=== PATIENT | male | born 1955 | race Caucasian/White ===

== ENCOUNTER 2017-04-26 02:25 | Inpatient (IN) | payer MEDICARE, OTHER ==
--- NOTE | 2017-04-26 03:02 | EDM.PDOC ---
ED HPI GENERAL MEDICAL PROBLEM - General Chief Complaint: Respiratory Problem Stated Complaint: Dyspnea Time Seen by Provider: 04/26/17 02:27 Source of Information: Reports: Patient, Family, RN, RN Notes Reviewed History Limitations: Reports: No Limitations - History of Present Illness INITIAL COMMENTS - FREE TEXT/NARRATIVE: Patient is brought to the ED at [facility] via [facility] for worsening dyspnea, wheezing, and SOB. Patient states he was discharged from the [facility] in [place] yesterday morning after a 2 day stay for Pneumonia. Patient states yesterday afternoon and into the evening, he started having significant SOB with dyspnea and also developed a productive cough. Patient called the ambulance due to worsening symptoms. According to the EMS crew, they contacted the provider on-call at [facility] who told them to take the patient directly to the [facility] in [place]. The EMS crew then contacted the [facility], who directed them to the nearest ER, stating they did not have any beds available for admissions. Patient states he was treated with antibiotics during his admission at the [facility] in [place], but was not sent home on any antibiotics. Patient states he was only prescribed PO steroid when discharge from the [facility]. Onset: Today - Related Data Allergies Allergy/AdvReac Type Severity Reaction Status Date / Time niacin Allergy Hives Verified 04/26/17 02:53 Home Meds: Home Meds . [Unable to Verify Home Med List] 04/26/17 [History] ED ROS GENERAL - Review of Systems Review Of Systems: See Below HEENT: Reports: No Symptoms Respiratory: Reports: Shortness of Breath, Wheezing, Pleuritic Chest Pain, Cough , Sputum Cardiovascular: Reports: Dyspnea on Exertion. Denies: Chest Pain, Palpitations GI/Abdominal: Denies: Abdominal Pain, Nausea, Vomiting Skin: Reports: No Symptoms Neurological: Reports: Dizziness. Denies: Headache, Numbness, Paresthesia, Tingling Psychiatric: Reports: Anxiety ED EXAM, GENERAL - Physical Exam Exam: See Below Exam Limited By: No Limitations General Appearance: Alert, Anxious, Moderate Distress Respiratory/Chest: Decreased Breath Sounds, Crackles, Rhonchi, Wheezing Cardiovascular: Normal Peripheral Pulses, No Murmur, Tachycardia Peripheral Pulses: 2+: Radial (L), Radial (R) GI/Abdominal: Soft, Non-Tender, Abnormal Bowel Sounds (Hypoactive) Neurological: Alert, Oriented Skin Exam: Warm, Dry, Intact, Normal Color, No Rash EKG INTERPRETATION EKG Date: 04/26/17 Time: 03:07 Rhythm: a-fib Rate (beats/min): 97 [place]: normal P-wave: absent QRS: LBBB ST-T: normal QT: normal CT/PQ Interval: Absent Comparison: NA - no prior EKG EKG Interpretation Comments: Atrial Fibrillation Left Anterior Fascicular block Course - Vital Signs Last Recorded V/S: Last Vital Signs Temp 37.4 C 04/26/17 02:50 Pulse 120 H 04/26/17 02:50 Resp 32 H 04/26/17 02:50 BP 160/101 H 04/26/17 02:50 Pulse Ox 96 04/26/17 02:50 - Orders/Labs/Meds Orders: Active Orders 24 hr Category Date Time Status Admission Status [Patient Status] [ADT] Routine ADT 04/26/17 04:17 Ordered EKG 12 Lead [EKG Documentation Completion] [RC] STAT Care 04/26/17 03:05 Active Chest 2V [CR] Stat Exams 04/26/17 03:05 Taken CULTURE BLOOD [BC] Stat Lab 04/26/17 04:05 Results CULTURE BLOOD [BC] Stat Lab 04/26/17 04:10 Received Sodium Chloride 0.9% [Saline Flush] Med 04/26/17 03:06 Active 10 ml FLUSH ASDIRECTED PRN Blood Culture x2 Reflex Set [OM.PC] Stat Oth 04/26/17 03:59 Ordered Peripheral IV Insertion Adult [OM.PC] Routine Oth 04/26/17 03:06 Ordered Medication Orders Sodium Chloride (Saline Flush) 10 ml FLUSH ASDIRECTED PRN PRN Reason: Keep Vein Open Labs: Laboratory Tests 04/26/17 04/26/17 04/26/17 Range/Units 03:15 03:15 03:15 WBC 14.0 H (4.0-10.0) x10^3/uL RBC 4.78 (4.5-6.0) x10^6/uL Hgb 12.1 L (14.0-18.0) g/dL Hct 38.5 L (40.0-52.0) % MCV 80.5 (78.0-93.0) fL MCH 25.3 L (26.0-32.0) pg MCHC 31.4 L (32.0-36.0) g/dL RDW Coeff of [place] 18.3 H (10.0-15.0) % Plt Count 292 (130-400) x10^3/uL Neut % (Auto) 84.7 H (50.0-80.0) % Lymph % (Auto) 4.5 L (25.0-50.0) % [place] % (Auto) 10.5 (2.0-11.0) % Eos % (Auto) 0.1 (0.0-4.0) % Baso % (Auto) 0.2 (0.2-1.2) % POC ABG pH (7.35-7.45) ABG pH POC ABG pCO2 (35-45) mmHG ABG pCO2 POC ABG pO2 (80-105) mmHG ABG pO2 POC ABG HCO3 (22-26) mmol/L ABG HCO3 POC ABG Total CO2 (23-27) mmol/L ABG Total CO2 POC ABG O2 Sat (95-98) % ABG O2 Content POC ABG Base Excess (-2-3) mmol/L ABG Base Excess A-a Gradient Oxygen Flow Rate FiO2 POC FiO2 Blood Gas Comments Sodium 144 (136-145) mmol/L Potassium 3.7 (3.5-5.1) mmol/L Chloride 106 (98-107) mmol/L Carbon Dioxide 32 (21-32) mmol/L BUN 21 H (7-18) mg/dL Creatinine 1.2 (0.70-1.30) mg/dL Est Cr Clr Drug Dosing TNP Estimated GFR (MDRD) > 60 Glucose 138 H (74-106) mg/dL Lactic Acid 1.1 (0.4-2.0) mmol/L Calcium 8.6 (8.5-10.1) mg/dL Corrected Calcium 9.16 (8.5-10.1) mg/dL Total Bilirubin 0.5 (0.2-1.0) mg/dL AST 88 H (15-37) U/L ALT 198 H (16-63) U/L Alkaline Phosphatase 91 (46-116) U/L Creatine Kinase 193 (39-308) U/L Creatine Kinase Index 1.2 (0.0-4.0) % CK-MB (CK-2) 2.4 (0.0-3.6) ng/mL Troponin I 0.086 H* (<=0.056) ng/mL C-Reactive Protein 5.5 H (<=0.9) mg/dL B-Natriuretic Peptide 3554 H (<=125) pg/mL Total Protein 7.2 (6.4-8.2) g/dL Albumin 3.3 L (3.4-5.0) g/dL Globulin 3.9 Albumin/Globulin Ratio 0.85 04/26/17 04/26/17 Range/Units 03:20 03:28 WBC (4.0-10.0) x10^3/uL RBC (4.5-6.0) x10^6/uL Hgb (14.0-18.0) g/dL Hct (40.0-52.0) % MCV (78.0-93.0) fL MCH (26.0-32.0) pg MCHC (32.0-36.0) g/dL RDW Coeff of [place] (10.0-15.0) % Plt Count (130-400) x10^3/uL Neut % (Auto) (50.0-80.0) % Lymph % (Auto) (25.0-50.0) % [place] % (Auto) (2.0-11.0) % Eos % (Auto) (0.0-4.0) % Baso % (Auto) (0.2-1.2) % POC ABG pH 7.480 H (7.35-7.45) ABG pH Cancelled POC ABG pCO2 36 (35-45) mmHG ABG pCO2 Cancelled POC ABG pO2 64 L (80-105) mmHG ABG pO2 Cancelled POC ABG HCO3 27 H (22-26) mmol/L ABG HCO3 Cancelled POC ABG Total CO2 28 H (23-27) mmol/L ABG Total CO2 Cancelled POC ABG O2 Sat 94 L (95-98) % ABG O2 Content Cancelled POC ABG Base Excess 3 (-2-3) mmol/L ABG Base Excess Cancelled A-a Gradient Cancelled Oxygen Flow Rate Cancelled FiO2 Cancelled POC FiO2 0.28 Blood Gas Comments Cancelled Sodium (136-145) mmol/L Potassium (3.5-5.1) mmol/L Chloride (98-107) mmol/L Carbon Dioxide (21-32) mmol/L BUN (7-18) mg/dL Creatinine (0.70-1.30) mg/dL Est Cr Clr Drug Dosing Estimated GFR (MDRD) Glucose (74-106) mg/dL Lactic Acid (0.4-2.0) mmol/L Calcium (8.5-10.1) mg/dL Corrected Calcium (8.5-10.1) mg/dL Total Bilirubin (0.2-1.0) mg/dL AST (15-37) U/L ALT (16-63) U/L Alkaline Phosphatase (46-116) U/L Creatine Kinase (39-308) U/L Creatine Kinase Index (0.0-4.0) % CK-MB (CK-2) (0.0-3.6) ng/mL Troponin I (<=0.056) ng/mL C-Reactive Protein (<=0.9) mg/dL B-Natriuretic Peptide (<=125) pg/mL Total Protein (6.4-8.2) g/dL Albumin (3.4-5.0) g/dL Globulin Albumin/Globulin Ratio Meds: Medications Generic Name Dose Route Start Last Admin Trade Name Freq PRN Reason Stop Dose Admin Sodium Chloride 10 ml 04/26/17 03:06 Saline Flush FLUSH ASDIRECTED PRN Keep Vein Open Discontinued Medications Generic Name Dose Route Start Last Admin Trade Name Freq PRN Reason Stop Dose Admin Sodium Chloride 1,000 mls @ 999 mls/hr 04/26/17 03:06 Normal Saline IV 04/26/17 04:06 ONETIME ONE Departure - Departure Time of Disposition: 04:18 Disposition: Admitted As Inpatient 66 Condition: fair Clinical Impression: Pulmonary edema with congestive heart failure, COPD with acute exacerbation, Hypoxia - Discharge Information ED Communication - ED Communication Date/Time Date: 04/26/17 Time Called: 04:18 - Discussed Case With (1) Discussed Case With (1): Patient - Conversation Summary Patient Aware of Amendments fo Care Plan: Yes - Problem List & Annotations (1) Pulmonary edema with congestive heart failure SNOMED Code(s): 10245456 Code(s): I50.1 - LEFT VENTRICULAR FAILURE Status: Acute Priority: High Current Visit: Yes Onset Date: ~04/25/17 (2) COPD with acute exacerbation SNOMED Code(s): 769262238 Code(s): J44.1 - CHRONIC OBSTRUCTIVE PULMONARY DISEASE W (ACUTE) EXACERBATION Status: Acute Priority: High Current Visit: Yes (3) Hypoxia SNOMED Code(s): 005953742, 305791072 Code(s): R09.02 - HYPOXEMIA Status: Acute Priority: High Current Visit : Yes Onset Date: ~04/26/17 - Problem List Review Problem List Initiated/Reviewed/Updated: Yes - My Orders Last 24 Hours: My Active Orders 04/26/17 03:05 EKG 12 Lead [EKG Documentation Completion] [RC] STAT Chest 2V [CR] Stat 04/26/17 03:06 Sodium Chloride 0.9% [Saline Flush] 10 ml FLUSH ASDIRECTED PRN Peripheral IV Insertion Adult [OM.PC] Routine 04/26/17 03:59 Blood Culture x2 Reflex Set [OM.PC] Stat 04/26/17 04:05 CULTURE BLOOD [BC] Stat 04/26/17 04:10 CULTURE BLOOD [BC] Stat 04/26/17 04:17 Admission Status [Patient Status] [ADT] Routine - Assessment/Plan Admission H&P: Please use this note as an admission H&P Last 24 Hours: My Active Orders 04/26/17 03:05 EKG 12 Lead [EKG Documentation Completion] [RC] STAT Chest 2V [CR] Stat 04/26/17 03:06 Sodium Chloride 0.9% [Saline Flush] 10 ml FLUSH ASDIRECTED PRN Peripheral IV Insertion Adult [OM.PC] Routine 04/26/17 03:59 Blood Culture x2 Reflex Set [OM.PC] Stat 04/26/17 04:05 CULTURE BLOOD [BC] Stat 04/26/17 04:10 CULTURE BLOOD [BC] Stat 04/26/17 04:17 Admission Status [Patient Status] [ADT] Routine
[2017-04-26] MEDS ORDERED: Sodium Chloride 0.9% 10 ML Syringe FLUSH PRN (03:06)
[2017-04-26] MEDS ORDERED: Sodium Chloride 0.9% 1,000 ML IV ONE (03:06)
[2017-04-26 04:09] LABS: CHLORIDE,CL 106 mmol/L (98-107); SODIUM,NA 144 mmol/L (136-145)
--- NOTE | 2017-04-26 05:08 | PCM.HP ---
H&P History of Present Illness - General Date of Service: 04/26/17 Admit Problem/Dx: Pulmonary Edema Acute COPD exacerbation Hypoxia Source of Information: Patient, EMS Notes Reviewed, Family, Old Records ([facility] Records), RN, RN Notes Reviewed History Limitations: Reports: No Limitations - History of Present Illness Initial Comments - Free Text/Narative: Patient is brought to the ED at [facility] via [facility] for worsening dyspnea, wheezing, and SOB. Patient states he was discharged from the [facility] in [place] yesterday morning after a 2 day stay for Pneumonia. Patient states yesterday afternoon and into the evening, he started having significant SOB with dyspnea and also developed a productive cough. Patient called the ambulance due to worsening symptoms. According to the EMS crew, they contacted the provider on-call at [facility] who told them to take the patient directly to the [facility] in [place]. The EMS crew then contacted the [facility], who directed them to the nearest ER, stating they did not have any beds available for admissions. Patient states he was treated with antibiotics during his admission at the [facility] in [place], but was not sent home on any antibiotics. Patient states he was only prescribed PO steroid when discharge from the [facility]. According to records from the [facility], the patient underwent right inguinal hernia repair on . Sometime after surgery, the patient developed SOB; therefore , was admitted with a dx of COPD exacerbation. He was given one dose of Zosyn for a temp of 102, no source of infection found. He was given nebs and steroids , which seem to help quite a bit. He did have elevated troponins, which is felt to be related to his CHF. Patient was able to be discharge on on PO steroids. Onset of Symptoms: Reports: Gradual Symptom Onset Date: 04/25/17 Duration of Symptoms: Reports: Getting Worse - Related Data Allergies/Adverse Reactions: Allergies Allergy/AdvReac Type Severity Reaction Status Date / Time niacin Allergy Hives Verified 04/26/17 02:53 Home Medications: Home Meds . [Unable to Verify Home Med List] 04/26/17 [History] Past Medical History Cardiovascular History: Reports: Afib, CAD, Heart Failure, High Cholesterol, Hypertension, NH, PVD, Stents Respiratory History: Reports: COPD - Past Surgical History Cardiovascular Surgical History: Reports: Carotid Stents Social & Family History - Family History Family Medical History: Noncontributory - Tobacco Use Smoking Status *Q: Former Smoker Years of Tobacco use: 13 Packs/Tins Daily: 2 Used Tobacco, but Quit: No Second Hand Smoke Exposure: Yes - Caffeine Use Caffeine Use: Reports: Coffee, Soda - Recreational Drug Use Recreational Drug Use: Yes Drug Use in Last 12 Months: No Recreational Drug Type: Reports: Marijuana/Hashish Recreational Drug Use Frequency: Binges - Living Situation & Occupation Living situation: Reports: Occupation: Disabled H&P Review of Systems - Review of Systems: Review Of Systems: See Below General: Denies: Fever, Chills, Weakness Pulmonary: Reports: Shortness of Breath, Wheezing, Pleuritic Chest Pain, Cough, Sputum Cardiovascular: Reports: Dyspnea on Exertion, Orthopnea. Denies: Chest Pain, Palpitations Gastrointestinal: Denies: Abdominal Pain, Nausea, Vomiting Skin: Reports: No Symptoms Neurological: Denies: Headache, Numbness, Paresthesia, Tingling Exam - Exam Exam: See Below - Vital Signs Vital Signs: Last Vital Signs Temp 37.4 C 04/26/17 02:50 Pulse 120 H 04/26/17 02:50 Resp 32 H 04/26/17 02:50 BP 160/101 H 04/26/17 02:50 Pulse Ox 94 L 04/26/17 04:30 Weight: 95.39 kg - Exam Quality Assessment: Supplemental Oxygen General: Alert, Oriented Neck: Supple Lungs: Normal Respiratory Effort, Decreased Breath Sounds, Crackles, Wheezing Cardiovascular: Normal S1, Normal S2, Irregular Rhythm Abdomen: Soft, Hypoactive Bowel Sounds Peripheral Pulses: 2+: Radial (L), Radial (R) Skin: Warm, Dry, Intact Neuro Extensive - Mental Status: Alert, Oriented x3 - Patient Data Result Diagrams: 04/26/17 03:15 04/26/17 03:15 *Q Meaningful Use (ADM) - VTE *Q VTE Criteria *Q: - VTE Risk Assess *Q Each Risk Factor Represents 2 Points: Age 60 - 74 Years (Patient is currently on Warfarin and Lovenox for AFib), Surgery: Major, Arthroscopic and/or Laparoscopic, Greater than 60 Min Total Score 2 Point Risk Factors: 4 - Stroke *Q Stroke Criteria *Q: - AMI *Q AMI Criteria *Q: - Problem List (1) Pulmonary edema with congestive heart failure SNOMED Code(s): 37962852 ICD Code: I50.1 - LEFT VENTRICULAR FAILURE Status: Acute Priority: High Current Visit: Yes Onset Date: ~04/25/17 (2) COPD with acute exacerbation SNOMED Code(s): 951316605 ICD Code: J44.1 - CHRONIC OBSTRUCTIVE PULMONARY DISEASE W (ACUTE) EXACERBATION Status: Acute Priority: High Current Visit: Yes (3) Hypoxia SNOMED Code(s): 267640043, 763911655 ICD Code: R09.02 - HYPOXEMIA Status: Acute Priority: High Current Visit : Yes Onset Date: ~04/26/17 (4) Type II diabetes mellitus SNOMED Code(s): 65918456 ICD Code: E11.9 - TYPE 2 DIABETES MELLITUS WITHOUT COMPLICATIONS Status: Acute Priority: Medium Current Visit: Yes Qualifiers: Diabetes mellitus complication status: with circulatory complication Diabetes mellitus complication detail: with other circulatory complications Diabetes mellitus antique clock repairer insulin use: without antique clock repairer use Qualified Code( s): E11.59 - Type 2 diabetes mellitus with other circulatory complications (5) Coronary artery disease SNOMED Code(s): 56904497 ICD Code: I25.10 - ATHSCL HEART DISEASE OF [place] CORONARY ARTERY W/O ANG PCTRS Status: Acute Priority: Medium Current Visit: Yes Qualifiers: Coronary Disease-Associated Artery/Lesion type: [place] artery [place] vs. transplanted heart: robinson heart Associated angina: without angina Qualified Code(s): I25.10 - Atherosclerotic heart disease of [place] coronary artery without angina pectoris (6) Hypertension SNOMED Code(s): 80457891 ICD Code: I10 - ESSENTIAL (PRIMARY) HYPERTENSION Status: Acute Current Visit: Yes Qualifiers: Hypertension type: essential hypertension Qualified Code(s): I10 - Essential (primary) hypertension (7) Chronic atrial fibrillation SNOMED Code(s): 633004904 ICD Code: I48.2 - CHRONIC ATRIAL FIBRILLATION Status: Acute Priority: Medium Current Visit: Yes (8) Peripheral vascular disease SNOMED Code(s): 029778946 ICD Code: I73.9 - PERIPHERAL VASCULAR DISEASE, UNSPECIFIED Status: Acute Priority: Medium Current Visit: Yes Problem List Initiated/Reviewed/Updated: Yes Orders Last 24hrs: Medication Orders Sodium Chloride (Saline Flush) 10 ml FLUSH ASDIRECTED PRN PRN Reason: Keep Vein Open Assessment/Plan Comment:: 61 yo male patient with a PMH of DM Type II, COPD, CAD, and Hypertension is admitted to acute for Pulmonary Edema in the setting of CHF, Acute COPD exacerbation, and hypoxia. We will hold PO lasix and change to IV. Start home medications for COPD along with DuoNebs. Solumedrol IV daily. Accu checks QID. Telemetry. Empirically start Zithromax for COPD exacerbation per GOLD guidelines. Will talk with pharmacy for Lovenox dosing and bridge with Warfarin. HOME VISITOR consult for COPD/smoking cessation. Continue all other home medications without changes for now. Patient wishes to be a Code I. Patient agrees with transfer to a higher level of care shoulder the need arise. DVT prophylaxis, already on Lovenox and Warfarin. I do anticipate this admission to be >48 hours.
[2017-04-26] MEDS ORDERED: Furosemide 20 MG/2 ML VIAL IVPUSH ONE (05:27)
[2017-04-26] MEDS ORDERED: Acetaminophen 325 MG Tab PO PRN (05:46)
[2017-04-26] MEDS ORDERED: Morphine 2 MG/ML Syringe IVPUSH PRN (05:46)
[2017-04-26] MEDS ORDERED: Ondansetron 4 MG Tab.DIS PO PRN (05:46)
[2017-04-26] MEDS ORDERED: LORazepam 2 MG/ML MDV IVPUSH PRN (05:53)
[2017-04-26] MEDS: Azithromycin 500 MG in Sodium Chloride 0.9% 250 ML IV SCH (06:10)
[2017-04-26] MEDS: methylPREDNISolone Sodium Succinate 125 MG/2 ML SDV IVPUSH SCH ×2 (06:11→09:16)
[2017-04-26] MEDS: Albuterol/Ipratropium 3.0-0.5 MG/3 ML Neb Soln NEB PRN ×4 (07:17→20:13)
[2017-04-26] MEDS ORDERED: Nitroglycerin 0.4 MG Tab.SL SL PRN (08:27)
[2017-04-26] MEDS ORDERED: Warfarin 5 MG Tab PO SCH ×2 (08:30→20:00)
[2017-04-26] MEDS ORDERED: Iopamidol 612 MG/ML 100 ML Bottle IVPUSH ONE (09:39)
[2017-04-26] MEDS ORDERED: Sodium Chloride 0.9% 100 ML IV ONE (09:39)
[2017-04-26] MEDS: Nicotine 21 MG/24 Hr Patch TRDERM SCH ×2 (09:41→09:51)
[2017-04-26] MEDS: buPROPion 150 MG Tab.ER PO SCH ×2 (09:42→20:14)
[2017-04-26] MEDS: Isosorbide Mononitrate 60 MG Tab.ER PO SCH (09:42)
[2017-04-26] MEDS: Enoxaparin 120 MG/0.8 ML Syringe SUBCUT SCH (09:42)
[2017-04-26] MEDS: Lisinopril 20 MG Tab PO SCH (09:42)
[2017-04-26] MEDS: Metoprolol Succinate 50 MG Tab.ER PO SCH (09:43)
[2017-04-26] MEDS: Omeprazole 20 MG Cap.CR PO SCH ×2 (09:43→17:24)
[2017-04-26] MEDS ORDERED: Digoxin 500 MCG/2 ML Amp IVPUSH ONE (11:49)
[2017-04-26] MEDS ORDERED: Digoxin 125 MCG Tab PO SCH ×2 (14:30→18:00)
--- NOTE | 2017-04-26 15:27 | PCM.PN ---
- General Info Date of Service: 04/26/17 Admission Dx/Problem (Free Text): Pulmonary Edema Acute COPD exacerbation Hypoxia Bilateral upper lobe infiltrates DM Type II CAD CHF Essential Hypertension Functional Status: Reports: pain controlled, tolerating diet, urinating Pain Score: 0 - Review of Systems General: Reports: No Symptoms. Denies: Fever, Weakness Pulmonary: Reports: shortness of breath, cough, wheezing Cardiovascular: Reports: Dyspnea on Exertion, Orthopnea. Denies: Chest Pain Gastrointestinal: Denies: Abdominal pain, Nausea, Vomiting Musculoskeletal: Reports: no symptoms Neurological: Reports: No Symptoms. Denies: Dizziness, Headache, Numbness, Paresthesia, Tingling - Patient Data Vitals - most recent: Last Vital Signs Temp 36.8 C 04/26/17 14:00 Pulse 88 04/26/17 14:00 Resp 26 H 04/26/17 14:00 BP 106/80 04/26/17 14:00 Pulse Ox 97 04/26/17 14:00 Weight - most recent: 95.254 kg I&O - last 24 hours: Intake & Output 04/26/17 04/26/17 04/26/17 06:59 14:59 22:59 Intake Total 400 240 Balance 400 240 Lab Results last 24 hrs: Laboratory Results - last 24 hr 04/26/17 04/26/17 04/26/17 Range/Units 07:03 07:03 07:03 PT 18.4 H (10.0-12.8) SEC INR 1.6 L (2.0-3.5) D-Dimer, Quantitative 0.98 H (<=0.58) mg/LFEU POC Glucose (74-106) mg/dL Troponin I 0.082 H* (<=0.056) ng/mL Urine Color (YELLOW) Urine Appearance (CLEAR) Urine pH (5.0-8.0) Ur Specific [place] Urine Protein (NEGATIVE) mg/dL Urine Glucose (UA) (NEGATIVE) mg/dL Urine Ketones (NEGATIVE) mg/dL Urine Occult Blood (NEGATIVE) Urine Nitrite (NEGATIVE) Urine Bilirubin (NEGATIVE) Urine Urobilinogen (0.2) EU/dL Ur Leukocyte Esterase (NEGATIVE) Urine RBC (NOT SEEN) /HPF Urine WBC (NOT SEEN) /HPF Ur Squamous Epith Cells (NEGATIVE) /HPF Urine Bacteria (NEGATIVE) /HPF Urine Mucus (NEGATIVE) /LPF 04/26/17 04/26/17 04/26/17 Range/Units 07:26 07:44 11:18 PT (10.0-12.8) SEC INR (2.0-3.5) D-Dimer, Quantitative (<=0.58) mg/LFEU POC Glucose 155 H 147 H (74-106) mg/dL Troponin I (<=0.056) ng/mL Urine Color Light yellow (YELLOW) Urine Appearance Clear (CLEAR) Urine pH 6.0 (5.0-8.0) Ur Specific [place] 1.010 Urine Protein Negative (NEGATIVE) mg/dL Urine Glucose (UA) Negative (NEGATIVE) mg/dL Urine Ketones Negative (NEGATIVE) mg/dL Urine Occult Blood Trace-intact H (NEGATIVE) Urine Nitrite Negative (NEGATIVE) Urine Bilirubin Negative (NEGATIVE) Urine Urobilinogen 0.2 (0.2) EU/dL Ur Leukocyte Esterase Negative (NEGATIVE) Urine RBC 0-5 (NOT SEEN) /HPF Urine WBC Not seen (NOT SEEN) /HPF Ur Squamous Epith Cells Rare (NEGATIVE) /HPF Urine Bacteria Not seen (NEGATIVE) /HPF Urine Mucus Not seen (NEGATIVE) /LPF Med Orders - Current: Current Medications Acetaminophen (Tylenol) 650 mg PO Q4H PRN PRN Reason: Pain (Mild 1-3)/fever Albuterol/Ipratropium (Duoneb 3.0-0.5 Mg/3 Ml) 3 ml NEB Q4HRRT PRN PRN Reason: Wheezing Last Admin: 04/26/17 14:53 Dose: 3 ml Atorvastatin Calcium (Lipitor) 80 mg PO BEDTIME [facility] Bupropion HCl (Wellbutrin Xl) 150 mg PO BID [facility] Last Admin: 04/26/17 09:42 Dose: 150 mg Digoxin (Lanoxin) 125 mcg PO DAILY@1800 [facility] Enoxaparin Sodium (Lovenox) 120 mg SUBCUT DAILY [facility] Last Admin: 04/26/17 09:42 Dose: 120 mg Furosemide (Lasix) 20 mg PO DAILY [facility] Azithromycin 500 mg/ Sodium (Chloride) 250 mls @ 250 mls/hr IV DAILY [facility] Last Admin: 04/26/17 06:10 Dose: 250 mls/hr Isosorbide Mononitrate (Imdur) 120 mg PO DAILY [facility] Last Admin: 04/26/17 09:42 Dose: 120 mg Lisinopril (Prinivil) 40 mg PO DAILY [facility] Last Admin: 04/26/17 09:42 Dose: 40 mg Lorazepam (Ativan) 0.5 mg IVPUSH Q4H PRN PRN Reason: Anxiety Last Admin: 04/26/17 06:27 Dose: 0.5 mg Methylprednisolone Sodium Succinate (Solu-Medrol) 125 mg IVPUSH DAILY [facility] Last Admin: 04/26/17 09:16 Dose: Not Given Metoprolol Succinate (Toprol Xl) 50 mg PO DAILY [facility] Last Admin: 04/26/17 09:43 Dose: 50 mg Morphine Sulfate (Morphine) 2 mg IVPUSH Q2H PRN PRN Reason: Pain (severe 7-10) Last Admin: 04/26/17 08:37 Dose: 2 mg Nicotine (Habitrol) 21 mg TRDERM DAILY [facility] Last Admin: 04/26/17 09:51 Dose: Not Given Nitroglycerin (Nitrostat) 0.4 mg SL ASDIRECTED PRN PRN Reason: Chest Pain Omeprazole (Omeprazole) 20 mg PO BIDAC [facility] Last Admin: 04/26/17 09:43 Dose: 20 mg Ondansetron HCl (Zofran Odt) 4 mg PO Q6H PRN PRN Reason: nausea, able to take PO Sodium Chloride (Saline Flush) 10 ml FLUSH ASDIRECTED PRN PRN Reason: Keep Vein Open Last Admin: 04/26/17 12:09 Dose: 10 ml Warfarin Sodium (Coumadin) 2.5 mg PO SuTuThSa@1999 [facility] Warfarin Sodium (Coumadin) 5 mg PO MoWeFr@1999 [facility] Discontinued Medications Digoxin (Lanoxin) 250 mcg IVPUSH ONETIME ONE Stop: 04/26/17 11:50 Last Admin: 04/26/17 12:09 Dose: 250 mcg Digoxin (Lanoxin) 125 mcg PO DAILY [facility] Last Admin: 04/26/17 15:06 Dose: Not Given Furosemide (Lasix) 20 mg IVPUSH NOW ONE Stop: 04/26/17 05:28 Last Admin: 04/26/17 06:11 Dose: 20 mg Sodium Chloride (Normal Saline) 1,000 mls @ 999 mls/hr IV ONETIME ONE Stop: 04/26/17 04:06 Last Admin: 04/26/17 04:05 Dose: 999 mls/hr Sodium Chloride (Normal Saline) 100 mls @ 5 mls/sec IV ONETIME ONE Stop: 04/26/17 09:40 Last Admin: 04/26/17 10:37 Dose: 5 mls/sec Iopamidol (Isovue-300 (61%)) 100 ml IVPUSH ONETIME ONE Stop: 04/26/17 09:40 Last Admin: 04/26/17 10:37 Dose: 100 ml Warfarin Sodium (Coumadin) 5 mg PO MOWEFR SOLEDAD Last Admin: 04/26/17 09:16 Dose: Not Given - Exam Quality Assessment: supplemental oxygen General: alert, oriented Neck: supple Lungs: Decreased breath sounds, Crackles (Scattered) Cardiovascular: Irregular Rhythm Abdomen: bowel sounds present, soft, no tenderness Extremities: no edema Skin: warm, dry, intact Neurological: no new focal deficit, normal speech - Problem List & Annotations (1) Pulmonary edema with congestive heart failure SNOMED Code(s): 93450596 Code(s): I50.1 - LEFT VENTRICULAR FAILURE Status: Acute Priority: High Current Visit: Yes Onset Date: ~04/25/17 Annotation/Comment:: Continue with PO Lasix and fluid restriction for today; daily weights (2) COPD with acute exacerbation SNOMED Code(s): 315111562 Code(s): J44.1 - CHRONIC OBSTRUCTIVE PULMONARY DISEASE W (ACUTE) EXACERBATION Status: Acute Priority: High Current Visit: Yes Annotation/ Comment:: DuoNebs PRN; IV Solumedrol daily; IV Azithromycin (3) Hypoxia SNOMED Code(s): 305685862, 657602082 Code(s): R09.02 - HYPOXEMIA Status: Resolved Priority: High Current Visit: Yes Onset Date: ~04/26/17 (4) Type II diabetes mellitus SNOMED Code(s): 70837735 Code(s): E11.9 - TYPE 2 DIABETES MELLITUS WITHOUT COMPLICATIONS Status: Chronic Priority: Medium Current Visit: Yes Qualifiers: Diabetes mellitus complication status: with circulatory complication Diabetes mellitus complication detail: with other circulatory complications Diabetes mellitus terminal gauger insulin use: without intermediate use Qualified Code( s): E11.59 - Type 2 diabetes mellitus with other circulatory complications Annotation/Comment:: Continue to monitor blood sugars QID (5) Coronary artery disease SNOMED Code(s): 90054561 Code(s): I25.10 - ATHSCL HEART DISEASE OF [place] CORONARY ARTERY W/O ANG PCTRS Status: Chronic Priority: Medium Current Visit: Yes Qualifiers: Coronary Disease-Associated Artery/Lesion type: [place] artery [place] vs. transplanted heart: [place] heart Associated angina: without angina Qualified Code(s): I25.10 - Atherosclerotic heart disease of [place] coronary artery without angina pectoris (6) Hypertension SNOMED Code(s): 70976531 Code(s): I10 - ESSENTIAL (PRIMARY) HYPERTENSION Status: Chronic Current Visit: Yes Qualifiers: Hypertension type: essential hypertension Qualified Code(s): I10 - Essential (primary) hypertension (7) Chronic atrial fibrillation SNOMED Code(s): 587526535 Code(s): I48.2 - CHRONIC ATRIAL FIBRILLATION Status: Acute Priority: Medium Current Visit: Yes Annotation/Comment:: Unknown if AFib is new or not by reading [facility]; Will give IV Digoxin today for rate control then start PO Dig; opted not to start Cardizem given lower blood pressure; Recheck EKG today with Troponin and BMP to monitor (8) Peripheral vascular disease SNOMED Code(s): 887634780 Code(s): I73.9 - PERIPHERAL VASCULAR DISEASE, UNSPECIFIED Status: Chronic Priority: Low Current Visit: Yes - Problem List Review Problem List Initiated/Reviewed/Updated: Yes - My Orders Last 24 Hours: My Active Orders 04/26/17 05:00 Azithromycin [Zithromax] 500 mg Sodium Chloride 0.9% [Normal Saline] 250 ml IV DAILY 04/26/17 05:28 Albuterol/Ipratropium [DuoNeb 3.0-0.5 MG/3 ML] 3 ml NEB Q4HRRT PRN 04/26/17 05:29 RT Aerosol Therapy [RC] ASDIRECTED 04/26/17 05:30 methylPREDNISolone Sod Succ [Solu-MEDROL] 125 mg IVPUSH DAILY 04/26/17 05:43 Cardiac Education [RC] Click To Edit CHF Questionnaire [COMM] Routine 04/26/17 05:46 Patient Status [ADT] Routine Ambulate [RC] ASDIRECTED Blood Glucose Check, Bedside [RC] 07,11,17,20 March Shower [RC] .PRN Oxygen Therapy [RC] 08,20 VTE/DVT Education [RC] .PRN Vital Signs [RC] 06,10,14,18,, Consult to Case Management [CONS] Routine Respiratory Care Assess and Treatment [CONS] Routine Acetaminophen [Tylenol] 650 mg PO Q4H PRN Morphine 2 mg IVPUSH Q2H PRN Ondansetron [Zofran ODT] 4 mg PO Q6H PRN Resuscitation Status Routine 04/26/17 05:47 Cardiac Monitoring [RC] 06,,,,, Intake and Output [RC] 04/26/17 05:48 Ambulate [RC] PER UNIT ROUTINE 04/26/17 05:51 Pharmacy Consult [Consult to Pharmacy] [CONS] Routine 04/26/17 05:53 LORazepam [Ativan] 0.5 mg IVPUSH Q4H PRN 04/26/17 08:00 Isosorbide Mononitrate [Imdur] 120 mg PO DAILY Nicotine [Habitrol] 21 mg TRDERM DAILY 04/26/17 08:27 Nitroglycerin [Nitrostat] 0.4 mg SL ASDIRECTED PRN 04/26/17 08:30 Enoxaparin [Lovenox] 120 mg SUBCUT DAILY Lisinopril [Prinivil] 40 mg PO DAILY Metoprolol Succinate [Toprol XL] 50 mg PO DAILY Omeprazole 20 mg PO BIDAC buPROPion [Wellbutrin XL] 150 mg PO BID 04/26/17 09:32 Chest w Cont [CT] Routine 04/26/17 13:31 EKG 12 Lead [EKG Documentation Completion] [RC] STAT 04/26/17 15:00 BASIC METABOLIC PANEL,BMP [CHEM] Routine TROPONIN I [CHEM] Routine TSH ULTRASENSITIVE [CHEM] Routine 04/26/17 18:00 Digoxin [Lanoxin] 125 mcg PO DAILY@1800 04/26/17 20:00 Warfarin [Coumadin] 5 mg PO MoWeFr@1999 atorvaSTATin [Lipitor] 80 mg PO BEDTIME 04/26/17 Breakfast [employer] Diet [DIET] Fluid Restriction [DIET] 04/27/17 08:00 Furosemide [Lasix] 20 mg PO DAILY 04/27/17 20:00 Warfarin [Coumadin] 2.5 mg PO SuTuThSa@1999 - Plan Plan:: 61 yo male patient with a PMH of DM Type II, COPD, CAD, and Hypertension is admitted to acute for Pulmonary Edema in the setting of CHF, Acute COPD exacerbation, and hypoxia. Unable to discern if the patient's atrial fibrillation is new onset or not, the [facility] not [facility]. Therefore we will treat this as a new onset and give the patient IV digoxin for rate control. The patient will be transitioned over to PO digoxin today. We will recheck an EKG as well as a troponin and BMP. We will recheck blood work in the a.m. We will continue with IV Zithromax for her bilateral upper lobe infiltrates. We will have pharmacy dose the Lovenox and bridged with Coumadin. [facility] [place] [facility] They do not have any beds available. Case management will contact [facility] [place] tomorrow to discuss bed situation. We will restart the patient's PO Lasix tomorrow. The patient does need an echocardiogram, however this facility does not have the capability at this time. Recommend echocardiogram to be done as outpatient. Continue all other medications the same. This patient has been discussed with Dr. Kaycee Mejia, who will follow this patient tomorrow morning.
[2017-04-26 15:49] LABS: CHLORIDE,CL 107 mmol/L (98-107); SODIUM,NA 143 mmol/L (136-145)
[2017-04-26] MEDS ORDERED: atorvaSTATin 40 MG Tab PO SCH (20:00)
[2017-04-27] MEDS: Omeprazole 20 MG Cap.CR PO SCH (06:21)
[2017-04-27] MEDS: Albuterol/Ipratropium 3.0-0.5 MG/3 ML Neb Soln NEB PRN ×2 (06:57→11:06)
[2017-04-27] MEDS: Lisinopril 20 MG Tab PO SCH (07:43)
[2017-04-27] MEDS: Enoxaparin 120 MG/0.8 ML Syringe SUBCUT SCH (07:43)
[2017-04-27] MEDS: Isosorbide Mononitrate 60 MG Tab.ER PO SCH (07:43)
[2017-04-27] MEDS: buPROPion 150 MG Tab.ER PO SCH (07:44)
[2017-04-27] MEDS: Metoprolol Succinate 50 MG Tab.ER PO SCH (07:44)
[2017-04-27] MEDS: Azithromycin 500 MG in Sodium Chloride 0.9% 250 ML IV SCH (07:44)
[2017-04-27] MEDS: methylPREDNISolone Sodium Succinate 125 MG/2 ML SDV IVPUSH SCH (07:44)
[2017-04-27] MEDS: Nicotine 21 MG/24 Hr Patch TRDERM SCH (07:45)
[2017-04-27] MEDS ORDERED: Furosemide 20 MG Tab PO SCH (08:00)
[2017-04-27] MEDS ORDERED: Albuterol 0.083% 2.5 MG/3 ML Neb Soln NEB PRN (09:08)
[2017-04-27 09:17] LABS: CHLORIDE,CL 110 mmol/L (98-107); SODIUM,NA 147 mmol/L (136-145)
--- NOTE | 2017-04-27 09:33 | PCM.PN ---
- General Info Date of Service: 04/27/17 Subjective Update: Patient does not feel as well as yesterday but reports his breathing is improved since earlier this morning. He did not get along well with the overnight nurse and was actually threatening to leave AMA this morning. He has calmed down quite a bit since shift change. He has had some intermittent sharp chest pain that has persisted over the past few days without changes. He still has the cough and has continued with some subjective fever and chills. He does feel he is improving overall but again does not feel as good as yesterday. - Review of Systems General: Reports: Fever, Fatigue HEENT: Reports: no symptoms Pulmonary: Reports: shortness of breath, pleuritic chest pain, wheezing Cardiovascular: Reports: No Symptoms Gastrointestinal: Reports: No symptoms Genitourinary: Reports: no symptoms Musculoskeletal: Reports: no symptoms Skin: Reports: no symptoms Neurological: Reports: No Symptoms - Patient Data Vitals - most recent: Last Vital Signs Temp 36.4 C 04/27/17 06:00 Pulse 125 H 04/27/17 07:44 Resp 20 04/27/17 06:00 BP 178/108 H 04/27/17 07:44 Pulse Ox 96 04/27/17 06:58 Weight - most recent: 95.254 kg I&O - last 24 hours: Intake & Output 04/26/17 04/27/17 04/27/17 22:59 06:59 14:59 Intake Total 120 Output Total 600 Balance -480 Lab Results last 24 hrs: Laboratory Results - last 24 hr 04/26/17 04/26/17 04/26/17 Range/Units 11:18 15:00 15:00 WBC (4.0-10.0) x10^3/uL RBC (4.5-6.0) x10^6/uL Hgb (14.0-18.0) g/dL Hct (40.0-52.0) % MCV (78.0-93.0) fL MCH (26.0-32.0) pg MCHC (32.0-36.0) g/dL RDW Coeff of [place] (10.0-15.0) % Plt Count (130-400) x10^3/uL Neut % (Auto) (50.0-80.0) % Lymph % (Auto) (25.0-50.0) % [place] % (Auto) (2.0-11.0) % Eos % (Auto) (0.0-4.0) % Baso % (Auto) (0.2-1.2) % Sodium 143 (136-145) mmol/L Potassium 4.4 (3.5-5.1) mmol/L Chloride 107 (98-107) mmol/L Carbon Dioxide 32 (21-32) mmol/L BUN 21 H (7-18) mg/dL Creatinine 1.1 (0.70-1.30) mg/dL Est Cr Clr Drug Dosing 70.52 mL/min Estimated GFR (MDRD) > 60 Glucose 196 H (74-106) mg/dL POC Glucose 147 H (74-106) mg/dL Calcium 8.2 L (8.5-10.1) mg/dL Magnesium 2.3 (1.8-2.4) mg/dL Creatine Kinase (39-308) U/L Creatine Kinase Index (0.0-4.0) % CK-MB (CK-2) (0.0-3.6) ng/mL Troponin I 0.058 H* (<=0.056) ng/mL B-Natriuretic Peptide (<=125) pg/mL TSH, Ultra Sensitive < 0.007 L (0.358-3.74) uIU/mL 04/26/17 04/27/17 04/27/17 Range/Units 20:09 06:22 06:32 WBC 15.6 H (4.0-10.0) x10^3/uL RBC 4.71 (4.5-6.0) x10^6/uL Hgb 11.8 L (14.0-18.0) g/dL Hct 37.9 L (40.0-52.0) % MCV 80.5 (78.0-93.0) fL MCH 25.1 L (26.0-32.0) pg MCHC 31.1 L (32.0-36.0) g/dL RDW Coeff of [place] 18.3 H (10.0-15.0) % Plt Count 310 (130-400) x10^3/uL Neut % (Auto) 74.0 (50.0-80.0) % Lymph % (Auto) 17.0 L (25.0-50.0) % [place] % (Auto) 8.2 (2.0-11.0) % Eos % (Auto) 0.6 (0.0-4.0) % Baso % (Auto) 0.2 (0.2-1.2) % Sodium (136-145) mmol/L Potassium (3.5-5.1) mmol/L Chloride (98-107) mmol/L Carbon Dioxide (21-32) mmol/L BUN (7-18) mg/dL Creatinine (0.70-1.30) mg/dL Est Cr Clr Drug Dosing mL/min Estimated GFR (MDRD) Glucose (74-106) mg/dL POC Glucose 146 H 82 (74-106) mg/dL Calcium (8.5-10.1) mg/dL Magnesium (1.8-2.4) mg/dL Creatine Kinase (39-308) U/L Creatine Kinase Index (0.0-4.0) % CK-MB (CK-2) (0.0-3.6) ng/mL Troponin I (<=0.056) ng/mL B-Natriuretic Peptide (<=125) pg/mL TSH, Ultra Sensitive (0.358-3.74) uIU/mL 04/27/17 Range/Units 06:32 WBC (4.0-10.0) x10^3/uL RBC (4.5-6.0) x10^6/uL Hgb (14.0-18.0) g/dL Hct (40.0-52.0) % MCV (78.0-93.0) fL MCH (26.0-32.0) pg MCHC (32.0-36.0) g/dL RDW Coeff of [place] (10.0-15.0) % Plt Count (130-400) x10^3/uL Neut % (Auto) (50.0-80.0) % Lymph % (Auto) (25.0-50.0) % [place] % (Auto) (2.0-11.0) % Eos % (Auto) (0.0-4.0) % Baso % (Auto) (0.2-1.2) % Sodium 147 H (136-145) mmol/L Potassium 4.0 (3.5-5.1) mmol/L Chloride 110 H (98-107) mmol/L Carbon Dioxide 32 (21-32) mmol/L BUN 28 H (7-18) mg/dL Creatinine 1.1 (0.70-1.30) mg/dL Est Cr Clr Drug Dosing 70.52 mL/min Estimated GFR (MDRD) > 60 Glucose 89 (74-106) mg/dL POC Glucose (74-106) mg/dL Calcium 8.8 (8.5-10.1) mg/dL Magnesium 2.3 (1.8-2.4) mg/dL Creatine Kinase 80 (39-308) U/L Creatine Kinase Index 2.0 (0.0-4.0) % CK-MB (CK-2) 1.6 (0.0-3.6) ng/mL Troponin I 0.058 H* (<=0.056) ng/mL B-Natriuretic Peptide 3921 H (<=125) pg/mL TSH, Ultra Sensitive (0.358-3.74) uIU/mL Med Orders - Current: Current Medications Acetaminophen (Tylenol) 650 mg PO Q4H PRN PRN Reason: Pain (Mild 1-3)/fever Albuterol (Proventil Neb Soln) 2.5 mg NEB Q2H PRN PRN Reason: shortness of breath, wheezing Last Admin: 04/27/17 09:18 Dose: 2.5 mg Albuterol/Ipratropium (Duoneb 3.0-0.5 Mg/3 Ml) 3 ml NEB Q4HRRT PRN PRN Reason: Wheezing Last Admin: 04/27/17 06:57 Dose: 3 ml Atorvastatin Calcium (Lipitor) 80 mg PO BEDTIME [facility] Last Admin: 04/26/17 20:15 Dose: 80 mg Bupropion HCl (Wellbutrin Xl) 150 mg PO BID [facility] Last Admin: 04/27/17 07:44 Dose: 150 mg Digoxin (Lanoxin) 125 mcg PO DAILY@1800 [facility] Last Admin: 04/26/17 17:24 Dose: 125 mcg Enoxaparin Sodium (Lovenox) 120 mg SUBCUT DAILY [facility] Last Admin: 04/27/17 07:43 Dose: 120 mg Furosemide (Lasix) 20 mg PO DAILY [facility] Last Admin: 04/27/17 07:43 Dose: 20 mg Azithromycin 500 mg/ Sodium (Chloride) 250 mls @ 250 mls/hr IV DAILY [facility] Last Admin: 04/27/17 07:44 Dose: 250 mls/hr Isosorbide Mononitrate (Imdur) 120 mg PO DAILY [facility] Last Admin: 04/27/17 07:43 Dose: 120 mg Lisinopril (Prinivil) 40 mg PO DAILY [facility] Last Admin: 04/27/17 07:43 Dose: 40 mg Lorazepam (Ativan) 0.5 mg IVPUSH Q4H PRN PRN Reason: Anxiety Last Admin: 04/26/17 06:27 Dose: 0.5 mg Methylprednisolone Sodium Succinate (Solu-Medrol) 125 mg IVPUSH DAILY [facility] Last Admin: 04/27/17 07:44 Dose: 125 mg Metoprolol Succinate (Toprol Xl) 50 mg PO DAILY [facility] Last Admin: 04/27/17 07:44 Dose: 50 mg Morphine Sulfate (Morphine) 2 mg IVPUSH Q2H PRN PRN Reason: Pain (severe 7-10) Last Admin: 04/26/17 08:37 Dose: 2 mg Nicotine (Habitrol) 21 mg TRDERM DAILY [facility] Last Admin: 04/27/17 07:45 Dose: Not Given Nitroglycerin (Nitrostat) 0.4 mg SL ASDIRECTED PRN PRN Reason: Chest Pain Omeprazole (Omeprazole) 20 mg PO BIDAC [facility] Last Admin: 04/27/17 06:21 Dose: 20 mg Ondansetron HCl (Zofran Odt) 4 mg PO Q6H PRN PRN Reason: nausea, able to take PO Sodium Chloride (Saline Flush) 10 ml FLUSH ASDIRECTED PRN PRN Reason: Keep Vein Open Last Admin: 04/26/17 12:09 Dose: 10 ml Warfarin Sodium (Coumadin) 2.5 mg PO [email or web address] [facility] Warfarin Sodium (Coumadin) 5 mg PO [email or web address] [facility] Last Admin: 04/26/17 20:14 Dose: 5 mg Discontinued Medications Digoxin (Lanoxin) 250 mcg IVPUSH ONETIME ONE Stop: 04/26/17 11:50 Last Admin: 04/26/17 12:09 Dose: 250 mcg Digoxin (Lanoxin) 125 mcg PO DAILY [facility] Last Admin: 04/26/17 15:06 Dose: Not Given Furosemide (Lasix) 20 mg IVPUSH NOW ONE Stop: 04/26/17 05:28 Last Admin: 04/26/17 06:11 Dose: 20 mg Sodium Chloride (Normal Saline) 1,000 mls @ 999 mls/hr IV ONETIME ONE Stop: 04/26/17 04:06 Last Admin: 04/26/17 04:05 Dose: 999 mls/hr Sodium Chloride (Normal Saline) 100 mls @ 5 mls/sec IV ONETIME ONE Stop: 04/26/17 09:40 Last Admin: 04/26/17 10:37 Dose: 5 mls/sec Iopamidol (Isovue-300 (61%)) 100 ml IVPUSH ONETIME ONE Stop: 04/26/17 09:40 Last Admin: 04/26/17 10:37 Dose: 100 ml Warfarin Sodium (Coumadin) 5 mg PO MOWEFR SOLEDAD Last Admin: 04/26/17 09:16 Dose: Not Given - Exam General: alert, cooperative, mild distress HEENT: Pupils equal, Pupils reactive, Mucous membr. moist/pink Neck: supple, no thyromegaly. No: lymphadenopathy Lungs: Wheezing Cardiovascular: No Murmurs, Irregular Rhythm, Tachycardia Abdomen: bowel sounds present, soft, no tenderness, no distension Extremities: no edema, normal pulses Skin: warm, dry, intact - Problem List & Annotations (1) COPD with acute exacerbation SNOMED Code(s): 973993837 Code(s): J44.1 - CHRONIC OBSTRUCTIVE PULMONARY DISEASE W (ACUTE) EXACERBATION Status: Acute Priority: High Current Visit: Yes Annotation/ Comment:: - Mildly improved yesterday but worse again today; still has quite a bit of wheezing on exam. - CT chest yesterday showed no PE, bilateral pulmonary edema. - Will make DuoNebs scheduled and add albuterol q2 hours PRN. - Will switch from solumedrol to prednisone and make his azithromycin PO. - Given lack of significant improvement, will explore transfer to acute hospital today, whether that is [place] or other if they have no beds. (2) Chronic atrial fibrillation SNOMED Code(s): 814074954 Code(s): I48.2 - CHRONIC ATRIAL FIBRILLATION Status: Acute Priority: Medium Current Visit: Yes Annotation/Comment:: - Unknown if AFib is new [facility] not [facility]. - Patient was started on digoxin yesterday, getting an IV dose first and then PO. Troponins have persistently been elevated. - His metoprolol has been continued. Rates are ok (80s-90s) at rest but up above 120 with any exertion at all. - Warfarin is continued. Lovenox dose will be decreased today to prophylactic rather than therapeutic. (3) Pulmonary edema with congestive heart failure SNOMED Code(s): 56693912 Code(s): I50.1 - LEFT VENTRICULAR FAILURE Status: Acute Priority: High Current Visit: Yes Onset Date: ~04/25/17 Annotation/Comment:: BNP is still quite elevated. As above, CT shows edema. Was given an IV dose of lasix yesterday and then continued on his home PO Lasix. On a 2L fluid restriction. Potential contribution from hyperthyroidism given significantly suppressed TSH at <0.007. (4) Coronary artery disease SNOMED Code(s): 62126601 Code(s): I25.10 - ATHSCL HEART DISEASE OF [place] CORONARY ARTERY W/O ANG PCTRS Status: Chronic Priority: Medium Current Visit: Yes Qualifiers: Coronary Disease-Associated Artery/Lesion type: [place] artery [place] vs. transplanted heart: [place] heart Associated angina: without angina Qualified Code(s): I25.10 - Atherosclerotic heart disease of [place] coronary artery without angina pectoris Annotation/Comment:: Unlikely to be contributing to current symptoms. Troponin has been elevated but stable. (5) Hypertension SNOMED Code(s): 79406771 Code(s): I10 - ESSENTIAL (PRIMARY) HYPERTENSION Status: Chronic Current Visit: Yes Qualifiers: Hypertension type: essential hypertension Qualified Code(s): I10 - Essential (primary) hypertension Annotation/Comment:: - BP elevated today but borderline low yesterday. Home medications have been continued without change. (6) Peripheral vascular disease SNOMED Code(s): 686842616 Code(s): I73.9 - PERIPHERAL VASCULAR DISEASE, UNSPECIFIED Status: Chronic Priority: Low Current Visit: Yes Annotation/Comment:: Asymptomatic. (7) Type II diabetes mellitus SNOMED Code(s): 08027826 Code(s): E11.9 - TYPE 2 DIABETES MELLITUS WITHOUT COMPLICATIONS Status: Chronic Priority: Medium Current Visit: Yes Qualifiers: Diabetes mellitus complication status: with circulatory complication Diabetes mellitus complication detail: with other circulatory complications Diabetes mellitus exterminator helper insulin use: without exterminator helper use Qualified Code( s): E11.59 - Type 2 diabetes mellitus with other circulatory complications Annotation/Comment:: Glucoses have been monitored QID and acceptable. (8) Low TSH level SNOMED Code(s): 456529080 Code(s): R94.6 - ABNORMAL RESULTS OF THYROID FUNCTION STUDIES Status: Acute Current Visit: Yes Annotation/Comment:: Results from yesterday reviewed. Confirmed with lab that we will not get a T3 and T4 in a timely manner. Given that this may be contributing to his current symptomatology, I do feel he should be transferred to an acute hospital where labs can be done more timely and endocrinology can be consulted. Did have IV contrast yesterday so thyroid uptake scan cannot be done. - Problem List Review Problem List Initiated/Reviewed/Updated: Yes - My Orders Last 24 Hours: My Active Orders 04/27/17 09:08 Albuterol [Proventil Neb Soln] 2.5 mg NEB Q2H PRN 04/27/17 09:09 RT Aerosol Therapy [RC] ASDIRECTED 04/27/17 Lunch Fluid Restriction [DIET] - Assessment Assessment:: 61 yo male admitted with COPD and CHF exacerbation. Symptoms are not improving despite usual cares. - Plan Plan:: See details under problems above. Patient needs higher level of care. [facility] If they are unable to [facility] the patient, will explore other options.
[2017-04-27 10:18] VITALS: BP 165/104
--- NOTE | 2017-04-27 13:29 | PCM.DCSUM1 ---
Discharge Summary - Hospital Course Brief History: Mr. Gonzalez is a 61 yo male with PMH of COPD, CHF, CAD, and hyperlipidemia who presented to the ED via EMS for further evaluation of 24 hours of worsening shortness of breath and fever (Tmax measured at home 102). - Discharge Data Discharge Date: 04/27/17 Discharge Disposition: DC/Tfer to Acute Hospital 02 Condition: Fair - Discharge Diagnosis/Problem(s) (1) Low TSH level SNOMED Code(s): 257643160 ICD Code: R94.6 - ABNORMAL RESULTS OF THYROID FUNCTION STUDIES Status: Acute Current Visit: Yes Problem Details: Results from yesterday reviewed. Confirmed with lab that we will not get a T3 and T4 in a timely manner. Given that this may be contributing to his current symptomatology, I do feel he should be transferred to an acute hospital where labs can be done more timely and endocrinology can be consulted. Did have IV contrast yesterday so thyroid uptake scan cannot be done. (2) COPD with acute exacerbation SNOMED Code(s): 603613322 ICD Code: J44.1 - CHRONIC OBSTRUCTIVE PULMONARY DISEASE W (ACUTE) EXACERBATION Status: Acute Priority: High Current Visit: Yes Problem Details: - Mildly improved yesterday but worse again today; still has quite a bit of wheezing on exam. - CT chest yesterday showed no PE, bilateral pulmonary edema. - Will make DuoNebs scheduled and add albuterol q2 hours PRN. - Will switch from solumedrol to prednisone and make his azithromycin PO. - Given lack of significant improvement, will explore transfer to acute hospital today, whether that is [facility] or other if they have no beds. (3) Chronic atrial fibrillation SNOMED Code(s): 885616249 ICD Code: I48.2 - CHRONIC ATRIAL FIBRILLATION Status: Acute Priority: Medium Current Visit: Yes Problem Details: Unknown if AFib is new or not by reading [facility] records. Patient was started on digoxin yesterday, getting an IV dose first and then PO. Troponins have persistently been elevated. His metoprolol has been continued. Rates are ok (80s-90s) at rest but up above 120 with any exertion at all. (4) Pulmonary edema with congestive heart failure SNOMED Code(s): 23703755 ICD Code: I50.1 - LEFT VENTRICULAR FAILURE Status: Acute Priority: High Current Visit: Yes Onset Date: ~04/25/17 Problem Details: BNP is still quite elevated. As above, CT shows edema. Was given an IV dose of lasix yesterday and then continued on his home PO Lasix. On a 2L fluid restriction. Potential contribution from hyperthyroidism given significantly suppressed TSH at <0.007. (5) Coronary artery disease SNOMED Code(s): 82801825 ICD Code: I25.10 - ATHSCL HEART DISEASE OF [place] CORONARY ARTERY W/O ANG PCTRS Status: Chronic Priority: Medium Current Visit: Yes Problem Details: Unlikely to be contributing to current symptoms. Troponin has been elevated but stable. Qualifiers: Coronary Disease-Associated Artery/Lesion type: [place] artery [place] vs. transplanted heart: [place] heart Associated angina: without angina Qualified Code(s): I25.10 - Atherosclerotic heart disease of [place] coronary artery without angina pectoris (6) Hypertension SNOMED Code(s): 17314141 ICD Code: I10 - ESSENTIAL (PRIMARY) HYPERTENSION Status: Chronic Current Visit: Yes Problem Details: - BP elevated today but borderline low yesterday. Home medications have been continued without change. Qualifiers: Hypertension type: essential hypertension Qualified Code(s): I10 - Essential (primary) hypertension (7) Peripheral vascular disease SNOMED Code(s): 041921201 ICD Code: I73.9 - PERIPHERAL VASCULAR DISEASE, UNSPECIFIED Status: Chronic Priority: Low Current Visit: Yes Problem Details: Asymptomatic. (8) Type II diabetes mellitus SNOMED Code(s): 26648670 ICD Code: E11.9 - TYPE 2 DIABETES MELLITUS WITHOUT COMPLICATIONS Status: Chronic Priority: Medium Current Visit: Yes Problem Details: Glucoses have been monitored QID and acceptable. Qualifiers: Diabetes mellitus complication status: with circulatory complication Diabetes mellitus complication detail: with other circulatory complications Diabetes mellitus snf insulin use: without snf use Qualified Code( s): E11.59 - Type 2 diabetes mellitus with other circulatory complications - Patient Summary/Data Operative Procedure(s) Performed: none Complications: none Consults: Consultations 04/26/17 05:46 Consult to Case Management [CONS] Routine Respiratory Care Assess and Treatment [CONS] Routine 04/26/17 05:51 Pharmacy Consult [Consult to Pharmacy] [CONS] Routine Hospital Course: See above under individual problems. Patient did not improve during his course despite usual treatment. In the setting of this as well as his very suppressed TSH, it was felt he would benefit from transfer to an acute hospital. He agreed. [facility] has accepted him and he will transfer by ambulance. - Patient Instructions Diet: Heart Healthy Diet Fluid Restriction: 2000 mL Activity: As Tolerated - Discharge Plan Home Medications: Home Meds Albuterol/Ipratropium [DuoNeb 3.0-0.5 MG/3 ML] 1 inh INH Q4H PRN 04/26/17 [ History] Budesonide/Formoterol Fumarate [Symbicort 160-4.5 Mcg Inhaler] 2 inh INH BID 10/31 [History] Cholecalciferol (Vitamin D3) [Vitamin D3] 400 units PO DAILY 04/26/17 [History] Furosemide 40 mg PO DAILY 04/26/17 [History] Isosorbide Mononitrate [Imdur] 120 mg PO DAILY 04/26/17 [History] Lisinopril 40 mg PO DAILY 04/26/17 [History] Metoprolol Succinate [Toprol XL] 50 mg PO DAILY 04/26/17 [History] Omeprazole 20 mg PO BID 04/26/17 [History] Rosuvastatin Calcium 40 mg PO BEDTIME 04/26/17 [History] Warfarin Sodium 2.5 mg PO TUTHSA 04/26/17 [History] Warfarin Sodium 5 mg PO MOWEFR 04/26/17 [History] buPROPion HCl [Zyban] 150 mg PO BID 04/26/17 [History] Albuterol/Ipratropium [DuoNeb 3.0-0.5 MG/3 ML] 3 ml NEB Q4HRRT neb 04/27/17 [Rx ] Azithromycin [Zithromax] 250 mg PO DAILY tablet 04/27/17 [Rx] Digoxin [Lanoxin] 125 mcg PO DAILY@1800 tablet 04/27/17 [Rx] Enoxaparin [Lovenox] 40 mg SUBCUT DAILY syringe 04/27/17 [Rx] Furosemide [Lasix] 20 mg PO DAILY tablet 04/27/17 [Rx] LORazepam [Ativan] 0.5 mg PO DAILY PRN #0 tablet 04/27/17 [Rx] Nicotine [Habitrol] 21 mg TRDERM DAILY patch 04/27/17 [Rx] Nitroglycerin [IJP: Nitroglycerin] 0.4 mg SL ASDIRECTED PRN #0 tablet, sublingual 04/27/17 [Rx] Prednisone [IJD: predniSONE] 40 mg PO WITHBREAKFAST tablet 04/27/17 [Rx] Referrals: PCP,Unobtain [Primary Care Provider] - - Discharge Summary/Plan Comment DC Time >30 min.: Yes (35 minutes) - Patient Data Vitals - Most Recent: Last Vital Signs Temp 36.8 C 04/27/17 10:00 Pulse 64 04/27/17 10:00 Resp 26 H 04/27/17 10:00 BP 165/104 H 04/27/17 10:00 Pulse Ox 91 L 04/27/17 10:00 Weight - Most Recent: 95.254 kg I&O - Last 24 hours: Intake & Output 04/26/17 04/27/17 04/27/17 22:59 06:59 14:59 Intake Total 120 600 Output Total 600 Balance -480 600 Lab Results - Last 24 hrs: Laboratory Results - last 24 hr 04/26/17 04/26/17 04/26/17 Range/Units 15:00 15:00 20:09 WBC (4.0-10.0) x10^3/uL RBC (4.5-6.0) x10^6/uL Hgb (14.0-18.0) g/dL Hct (40.0-52.0) % MCV (78.0-93.0) fL MCH (26.0-32.0) pg MCHC (32.0-36.0) g/dL RDW Coeff of [place] (10.0-15.0) % Plt Count (130-400) x10^3/uL Neut % (Auto) (50.0-80.0) % Lymph % (Auto) (25.0-50.0) % [place] % (Auto) (2.0-11.0) % Eos % (Auto) (0.0-4.0) % Baso % (Auto) (0.2-1.2) % Sodium 143 (136-145) mmol/L Potassium 4.4 (3.5-5.1) mmol/L Chloride 107 (98-107) mmol/L Carbon Dioxide 32 (21-32) mmol/L BUN 21 H (7-18) mg/dL Creatinine 1.1 (0.70-1.30) mg/dL Est Cr Clr Drug Dosing 70.52 mL/min Estimated GFR (MDRD) > 60 Glucose 196 H (74-106) mg/dL POC Glucose 146 H (74-106) mg/dL Calcium 8.2 L (8.5-10.1) mg/dL Magnesium 2.3 (1.8-2.4) mg/dL Creatine Kinase (39-308) U/L Creatine Kinase Index (0.0-4.0) % CK-MB (CK-2) (0.0-3.6) ng/mL Troponin I 0.058 H* (<=0.056) ng/mL B-Natriuretic Peptide (<=125) pg/mL TSH, Ultra Sensitive < 0.007 L (0.358-3.74) uIU/mL 04/27/17 04/27/17 04/27/17 Range/Units 06:22 06:32 06:32 WBC 15.6 H (4.0-10.0) x10^3/uL RBC 4.71 (4.5-6.0) x10^6/uL Hgb 11.8 L (14.0-18.0) g/dL Hct 37.9 L (40.0-52.0) % MCV 80.5 (78.0-93.0) fL MCH 25.1 L (26.0-32.0) pg MCHC 31.1 L (32.0-36.0) g/dL RDW Coeff of [place] 18.3 H (10.0-15.0) % Plt Count 310 (130-400) x10^3/uL Neut % (Auto) 74.0 (50.0-80.0) % Lymph % (Auto) 17.0 L (25.0-50.0) % [place] % (Auto) 8.2 (2.0-11.0) % Eos % (Auto) 0.6 (0.0-4.0) % Baso % (Auto) 0.2 (0.2-1.2) % Sodium 147 H (136-145) mmol/L Potassium 4.0 (3.5-5.1) mmol/L Chloride 110 H (98-107) mmol/L Carbon Dioxide 32 (21-32) mmol/L BUN 28 H (7-18) mg/dL Creatinine 1.1 (0.70-1.30) mg/dL Est Cr Clr Drug Dosing 70.52 mL/min Estimated GFR (MDRD) > 60 Glucose 89 (74-106) mg/dL POC Glucose 82 (74-106) mg/dL Calcium 8.8 (8.5-10.1) mg/dL Magnesium 2.3 (1.8-2.4) mg/dL Creatine Kinase 80 (39-308) U/L Creatine Kinase Index 2.0 (0.0-4.0) % CK-MB (CK-2) 1.6 (0.0-3.6) ng/mL Troponin I 0.058 H* (<=0.056) ng/mL B-Natriuretic Peptide 3921 H (<=125) pg/mL TSH, Ultra Sensitive (0.358-3.74) uIU/mL Med Orders - Current: Current Medications Acetaminophen (Tylenol) 650 mg PO Q4H PRN PRN Reason: Pain (Mild 1-3)/fever Albuterol (Proventil Neb Soln) 2.5 mg NEB Q2H PRN PRN Reason: shortness of breath, wheezing Last Admin: 04/27/17 09:18 Dose: 2.5 mg Albuterol/Ipratropium (Duoneb 3.0-0.5 Mg/3 Ml) 3 ml NEB Q4HRRT [facility] Atorvastatin Calcium (Lipitor) 80 mg PO BEDTIME [facility] Last Admin: 04/26/17 20:15 Dose: 80 mg Azithromycin (Zithromax) 250 mg PO DAILY [facility] Stop: 05/01/17 08:01 Bupropion HCl (Wellbutrin Xl) 150 mg PO BID [facility] Last Admin: 04/27/17 07:44 Dose: 150 mg Digoxin (Lanoxin) 125 mcg PO DAILY@1800 [facility] Last Admin: 04/26/17 17:24 Dose: 125 mcg Enoxaparin Sodium (Lovenox) 120 mg SUBCUT DAILY [facility] Last Admin: 04/27/17 07:43 Dose: 120 mg Furosemide (Lasix) 20 mg PO DAILY [facility] Last Admin: 04/27/17 07:43 Dose: 20 mg Isosorbide Mononitrate (Imdur) 120 mg PO DAILY [facility] Last Admin: 04/27/17 07:43 Dose: 120 mg Lisinopril (Prinivil) 40 mg PO DAILY [facility] Last Admin: 04/27/17 07:43 Dose: 40 mg Lorazepam (Ativan) 0.5 mg PO DAILY PRN PRN Reason: Anxiety Metoprolol Succinate (Toprol Xl) 50 mg PO DAILY [facility] Last Admin: 04/27/17 07:44 Dose: 50 mg Nicotine (Habitrol) 21 mg TRDERM DAILY [facility] Last Admin: 04/27/17 07:45 Dose: Not Given Nitroglycerin (Nitrostat) 0.4 mg SL ASDIRECTED PRN PRN Reason: Chest Pain Omeprazole (Omeprazole) 20 mg PO BIDAC [facility] Last Admin: 04/27/17 06:21 Dose: 20 mg Prednisone (Prednisone) 40 mg PO WITHBREAKFAST [facility] Sodium Chloride (Saline Flush) 10 ml FLUSH ASDIRECTED PRN PRN Reason: Keep Vein Open Last Admin: 04/26/17 12:09 Dose: 10 ml Warfarin Sodium (Coumadin) 2.5 mg PO [email or web address] [facility] Warfarin Sodium (Coumadin) 5 mg PO [email or web address] [facility] Last Admin: 04/26/17 20:14 Dose: 5 mg Discontinued Medications Albuterol/Ipratropium (Duoneb 3.0-0.5 Mg/3 Ml) 3 ml NEB Q4HRRT PRN PRN Reason: Wheezing Last Admin: 04/27/17 11:06 Dose: 3 ml Digoxin (Lanoxin) 250 mcg IVPUSH ONETIME ONE Stop: 04/26/17 11:50 Last Admin: 04/26/17 12:09 Dose: 250 mcg Digoxin (Lanoxin) 125 mcg PO DAILY [facility] Last Admin: 04/26/17 15:06 Dose: Not Given Furosemide (Lasix) 20 mg IVPUSH NOW ONE Stop: 04/26/17 05:28 Last Admin: 04/26/17 06:11 Dose: 20 mg Sodium Chloride (Normal Saline) 1,000 mls @ 999 mls/hr IV ONETIME ONE Stop: 04/26/17 04:06 Last Admin: 04/26/17 04:05 Dose: 999 mls/hr Azithromycin 500 mg/ Sodium (Chloride) 250 mls @ 250 mls/hr IV DAILY [facility] Last Admin: 04/27/17 07:44 Dose: 250 mls/hr Sodium Chloride (Normal Saline) 100 mls @ 5 mls/sec IV ONETIME ONE Stop: 04/26/17 09:40 Last Admin: 04/26/17 10:37 Dose: 5 mls/sec Iopamidol (Isovue-300 (61%)) 100 ml IVPUSH ONETIME ONE Stop: 04/26/17 09:40 Last Admin: 04/26/17 10:37 Dose: 100 ml Lorazepam (Ativan) 0.5 mg IVPUSH Q4H PRN PRN Reason: Anxiety Last Admin: 04/26/17 06:27 Dose: 0.5 mg Methylprednisolone Sodium Succinate (Solu-Medrol) 125 mg IVPUSH DAILY [facility] Last Admin: 04/27/17 07:44 Dose: 125 mg Morphine Sulfate (Morphine) 2 mg IVPUSH Q2H PRN PRN Reason: Pain (severe 7-10) Last Admin: 04/26/17 08:37 Dose: 2 mg Ondansetron HCl (Zofran Odt) 4 mg PO Q6H PRN PRN Reason: nausea, able to take PO Warfarin Sodium (Coumadin) 5 mg PO MOWEFR [facility] Last Admin: 04/26/17 09:16 Dose: Not Given *Q Meaningful Use (DIS) - VTE *Q VTE Criteria *Q: - Stroke *Q Stroke Criteria *Q: - AMI *Q AMI Criteria *Q:
[2017-04-27] MEDS ORDERED: Albuterol/Ipratropium 3.0-0.5 MG/3 ML Neb Soln NEB SCH (15:00)
[2017-04-27] MEDS ORDERED: Warfarin 2.5 MG Tab PO SCH (20:00)
[2017-04-28] MEDS ORDERED: Azithromycin 250 MG Tab PO SCH (08:00)
[2017-04-28] MEDS ORDERED: predniSONE 20 MG Tab PO SCH (08:00)
[2017-04-28] MEDS ORDERED: LORazepam 0.5 MG Tab PO PRN (08:00)
[2017-04-28] MEDS ORDERED: Enoxaparin 40 MG/0.4 ML Syringe SUBCUT SCH (08:00)
== END 2017-04-27 14:20 | disposition short-term general hospital (02) | DRG 292 ==
LOC: VM.ED 02:25 → VM.MS 04:17
PROVIDERS: ADMIT Nurse Practitioner Family; ATTEND Nurse Practitioner Family
DX: I11.0 Hypertensive heart disease with heart failure (principal); J44.1 Chronic obstructive pulmonary disease with (acute) exacerbation; I50.1 Left ventricular failure, unspecified; I48.2 Chronic atrial fibrillation; R94.6 Abnormal results of thyroid function studies; I25.10 Atherosclerotic heart disease of native coronary artery without angina pectoris; E11.51 Type 2 diabetes mellitus with diabetic peripheral angiopathy without gangrene; Z87.891 Personal history of nicotine dependence; Z79.01 Long term (current) use of anticoagulants; R09.02 Hypoxemia
CPT/HCPCS: 36415; 36600; 71020; 80053; 82550; 82553; 82803; 83605; 83880; 84484; 85025; 86140; 87040 ×2; 93005; 99285; J7030; 71260; 80048; 81001; 82962; 83735; 84443; 85379; 85610; 94640; 94640-76; 94760; A9270-GY; J0456; J1160; J1650; J1940; J2060; J2270; J2930; J7050; J7620-GY; Q9967